=== PATIENT | female | born 1945 | race Caucasian/White ===

== ENCOUNTER 2019-02-19 17:31 | Inpatient (IN) | payer MEDICARE, BC ==
[~2019-02-19] VITALS: Ht 160 cm; Wt 121.6 kg
[2019-02-19] VITALS (13 sets, daily range): BP systolic 51–119; BP diastolic 37–77
[2019-02-19] MEDS ORDERED: POLY17PO4 PO (17:39)
[2019-02-19] MEDS ORDERED: ASPI81TA31 PO (17:39)
[2019-02-19] MEDS ORDERED: ATOR10TA PO (17:39)
[2019-02-19] MEDS ORDERED: HYDR-3326 PO (17:43)
[2019-02-19] MEDS ORDERED: BUME1TAB5 PO (17:43)
[2019-02-19] MEDS ORDERED: HUMALOG (17:43)
[2019-02-19] MEDS ORDERED: DOCU-141 PO (17:43)
[2019-02-19] MEDS ORDERED: ONDANSETRON 4 MG/2 ML VIAL IV ONE (17:45)
[2019-02-19] MEDS ORDERED: IV NORMAL SALINE 500 ML BAG IV ONE (17:45)
[2019-02-19] MEDS ORDERED: HYDROMORPHONE 1 MG/1 ML DISP.SYRIN IV ONE (17:45)
[2019-02-19] MEDS ORDERED: TRAM50TA PO (17:48)
[2019-02-19] MEDS ORDERED: FEBU40TA PO (17:48)
[2019-02-19] MEDS ORDERED: [UNRECOGNIZED DRUG - OTHER] PO (17:48)
[2019-02-19] MEDS ORDERED: METO50TA16 PO (17:49)
--- NOTE | 2019-02-19 17:52 | NUR ---
Home meds list was taken from [facility] notes. [facility] hospitalist still needs to review & reconcile these medicines list with patient and family.
--- NOTE | 2019-02-19 18:00 | NUR ---
received a 73 year old female pt, C/O sacral pain. patient is from [facility]. was undergoing dialysis when patient had severe pain and brought by ambulance acompanied with her daughter. pt upon arrival connected to ECG monitor, V/S checked. 12 lead ecg done. blood work done , iv inserted on LT AC G 20. pt has a FC acc to daughter was inserted on january 17. therefore FC was changed today. has a RT subclavian dialysis cath . 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
[2019-02-19] MEDS ORDERED: HYDROMORPHONE 2 MG/1 ML DISP.SYRIN ONE (18:04)
[2019-02-19] MEDS ORDERED: ONDANSETRON 4 MG/2 ML VIAL ONE (18:04)
[2019-02-19 18:12] LABS: BASOPHILS # (AUTO) 0.1 K/uL (0.0-8.0); BASOPHILS % (AUTO) 0.4 % (0.0-2.0); EOSINOPHILS % (AUTO) 0.2 % (0.0-7.0); HEMATOCRIT 39.4 % (31.2-41.9); HEMOGLOBIN 11.7 g/dL (10.9-14.3); LYMPHOCYTES # (AUTO) 2.1 K/uL (20.0-40.0); LYMPHOCYTES % (AUTO) 10.3 % (20.5-51.5); MEAN CORPUSCULAR HEMOGLOBIN 22.3 uug (24.7-32.8); MEAN CORPUSCULAR HGB CONC 30 g/dL (32.3-35.6); MONOCYTES # (AUTO) 1.1 K/uL (2.0-10.0); MONOCYTES % (AUTO) 5.6 % (0.0-11.0); NEUTROPHILS # (AUTO) 17.1 K/uL (1.8-8.9); NEUTROPHILS % (AUTO) 83.5 % (38.5-71.5); PLATELET COUNT (AUTO) 206 K/uL (179-408); RED BLOOD CELL COUNT(AUTO) 5.26 MIL/uL (3.63-4.92); WHITE BLOOD COUNT (AUTO) 20.5 K/uL (3.8-11.8)
[2019-02-19] MEDS ORDERED: MIDO5TAB PO (18:14)
[2019-02-19] MEDS ORDERED: FERR325T24 PO (18:14)
[2019-02-19] MEDS ORDERED: METO5TAB7 PO (18:14)
[2019-02-19] MEDS ORDERED: TOLV15TA PO (18:17)
[2019-02-19] MEDS ORDERED: SILD20TA2 PO (18:17)
[2019-02-19] MEDS ORDERED: LACT10SO7 PO (18:17)
[2019-02-19 18:34] LABS: CARBON DIOXIDE 27 mmol/L (21-32); CHLORIDE 96 mmol/L (98-107); CREATININE 3.5 mg/dL (0.6-1.3); GLUCOSE 150 mg/dL (74-106); POTASSIUM 3.9 mmol/L (3.5-5.1); UREA NITROGEN, BLOOD 71 mg/dL (7-18)
[2019-02-19 18:39] LABS: ALANINE AMINOTRANSFERASE 19 U/L (14-59); ALKALINE PHOSPHATASE 220 U/L (50-136); ASPARTATE AMINOTRANSFERASE 17 U/L (15-37); BILIRUBIN,DIRECT 0.3 mg/dL (0.0-0.2); BILIRUBIN,TOTAL 0.6 mg/dL (0.2-1.0); LIPASE 47 U/L (73-393); TOTAL PROTEIN, SERUM 5.4 g/dL (6.4-8.2)
[2019-02-19 18:41] LABS: BAND % (MANUAL) 5 % (0-10); LYMPHOCYTES % (MANUAL) 1 % (20-40); MONOCYTES % (MANUAL) 8 % (2-10); NEUTROPHILS % (MANUAL) 86 % (42-75)
[2019-02-19] MEDS ORDERED: VANCOMYCIN IV 1,000 MG in IV DEXTROSE 5% 250 ML IV ONE (18:45)
[2019-02-19] MEDS ORDERED: PIPERACILLIN SODIUM/TAZOBACTAM 3.375 G in IV DEXTROSE 5% 50 ML IV ONE (18:45)
[2019-02-19] MEDS ORDERED: PIPERACILLIN/TAZOBACTAM/D5W 50 ML IV ONE (18:50)
[2019-02-19] MEDS ORDERED: VANCOMYCIN IV 200 ML ONE (18:50)
--- NOTE | 2019-02-19 19:33 | NUR ---
Pt. admitted to [facility] (CCU Bed 1), under care of Dr. Miki Bello. Diagnosis: Renal Failure + Elevated Troponin. Belongs List completed. MRSA swab done.
--- NOTE | 2019-02-19 20:00 | NUR ---
Received patient from ER via gurney very lethargic, opens eyes to name, unable to follow any commands but localizes pain. As per report, patient was medicated with Dilaudid for pain. To CCU 1; DX: sepsis. Patient noted with severe cellulitis of BLEs. Monitor: Afib/flutter rate 70's. Dr. Bello notified of patient's admission and VS. IV Vancomycin infusing to [facility] IV site.
[2019-02-19] MEDS ORDERED: MORPHINE SULFATE 2 MG/1 ML DISP.SYRIN IV PRN (20:30)
[2019-02-19] MEDS ORDERED: IV D5/ 0.9% NACL 1,000 ML IV PRN (20:30)
[2019-02-19] MEDS ORDERED: NOREPINEPHRINE BITARTRATE 8 MG in IV DEXTROSE 5% 500 ML IV PRN (20:30)
[2019-02-19] MEDS ORDERED: ONDANSETRON 4 MG/2 ML VIAL IV PRN (20:30)
[2019-02-19] MEDS ORDERED: ALBUTEROL SULFATE 2.5 MG/3 ML NEBU NEB PRN (20:30)
[2019-02-19] MEDS ORDERED: ACETAMINOPHEN 650 MG SUPP.RECT RC PRN (20:30)
--- NOTE | 2019-02-19 20:30 | NUR ---
Admission data obtained from patient's daughter Kathleen; visiting hours discussed with her. Verbalized understanding.
[2019-02-19] MEDS ORDERED: VANCOMYCIN IV 1 G in PREMIXED 0 EACH IV SCH (21:00)
--- NOTE | 2019-02-19 21:05 | NUR ---
Patient's son Zachary here. Plan of care discussed with both daughter and son. Dr. Aguirre notified of patient's CPAP/BIPAP need at night. Ordered ABGs in am; no ABGs for now as per MD. Patient remains very lethargic. RT informed of BIPAP orders.
--- NOTE | 2019-02-19 21:15 | NUR ---
Placed pt on BIPAP at this time with setting 15/5,RR14,40%. SpO2 95% protective gel on mask on and josé miguel BIPAP well. plugged in to red outlet. will cont to monitor pt.
--- NOTE | 2019-02-19 21:30 | NUR ---
Unable to obtain accurate BPs. Patient continues to open eyes to name but still very lethargic. Attempted to insert another IV but futile. Skin warm and dry. Monitor: still afib rate 70's. Metal Technician notified of PICC line need.
[2019-02-19] MEDS: FAMOTIDINE. 20 MG/2 ML VIAL IV SCH (21:31)
--- NOTE | 2019-02-19 21:40 | NUR ---
Patient's daughter Kathleen called and informed of the need for PICC line. Consent obtained via phone. First Leveler Jessica notified.
[2019-02-19] MEDS ORDERED: PIPERACILLIN/TAZOBACTAM/D5W 50 ML ONE (21:46)
[2019-02-19] MEDS ORDERED: PIPERACILLIN/TAZOBACTAM/D5W 2.25 G in PREMIXED 1 EACH IV SCH (22:00)
[2019-02-19] MEDS ORDERED: IV NORMAL SALINE 500 ML IV ONE (22:00)
--- NOTE | 2019-02-19 22:00 | NUR ---
Dr. Bello here. Aware of patient's condition. NS IV bolus infusing.
[2019-02-19] MEDS ORDERED: NOREPINEPHRINE BITARTRATE 4 MG/4 ML VIAL IV ONE (22:15)
[2019-02-19] MEDS: NOREPINEPHRINE BITARTRATE 8 MG in IV DEXTROSE 5% 500 ML IV PRN (22:39)
--- NOTE | 2019-02-19 22:45 | NUR ---
Triple lumen cath successfully inserted to R femoral by Dr. Mccann. Levophed drip titrated up for BP support. ABGs drawn by RT Dr. Bello informed.
[2019-02-19 23:02] LABS: ABG BASE EXCESS -1.8 mmol/L; ABG HCO3 28.1 mmol/L; ABG PCO2 75.7 mmHg (35.0-45.0); ABG PH 7.187 (7.350-7.450); ABG PO2 92.3 mmHg (75.0-100.0); ABG SITE LEFT RADIAL; ABG TOTAL HEMOGLOBIN 12.4 G/dL (12.0-16.0); COHb 2.8 % (0.5-1.5); MetHb 0.2 % (0.0-1.5); O2Hb 92.2 % (94.0-97.0); VENT MODE BIPAP
--- NOTE | 2019-02-19 23:10 | NUR ---
Call placed to patient's daughter; no answer. Patient's son Zachary called and informed of pending intubation.
--- NOTE | 2019-02-19 23:15 | NUR ---
Results of ABGs called to Dr. Mccann; ordered to prepare patient for intubation. RTs here. Patient's daughter Kathleen called back and informed of pending intubation; able to talk to Dr. Mccann.
--- NOTE | 2019-02-19 23:40 | NUR ---
Orally intubated by Dr. Mccann; premedicated with Etomidate and Norcuron IV. VS monitored closely. See IV spread sheet for Levophed drip rates/dosages.
[2019-02-19] MEDS: PROPOFOL 100 ML IV PRN (23:43)
[2019-02-19] MEDS ORDERED: ETOMIDATE 20 MG/10 ML VIAL IV ONE (23:45)
[2019-02-19] MEDS ORDERED: VECURONIUM BROMIDE 10 MG VIAL IV ONE (23:45)
--- NOTE | 2019-02-19 23:45 | NUR ---
intubate pt at this time, done by Dr. Mccann. placed on vent with setting of AC 16, VT650,50% FiO2. josé miguel vent setting well. SpO2 99%. secured with anchorfast device. ETT with 7.5 aprox 24cm at the lip. alarm on and audible, ambubag at pt bedside. vent plugged into red outlet.
[2019-02-20] VITALS (94 sets, daily range): BP systolic 60–149; BP diastolic 36–101
[2019-02-20] MEDS ORDERED: VECURONIUM BROMIDE 10 MG VIAL IV ONE ×2 (00:15→15:13)
[2019-02-20] MEDS ORDERED: NS IV PRN (00:30)
--- NOTE | 2019-02-20 00:30 | NUR ---
Daughter Kathleen at bedside; made aware of patient's condition. Heparin drip dose discussed with Pharmacist Brandon. Informed that Dr. Bello okayed dose of 1140 units/H and with no bolus.
[2019-02-20] MEDS ORDERED: IV NS 1000 ML 1,000 ML IV PRN (00:45)
[2019-02-20] MEDS: HEPARIN/D5W DRIP 500 ML IV PRN ×2 (00:55→23:48)
--- NOTE | 2019-02-20 00:55 | NUR ---
Heparin drip started at 1140 units/H after all procedures done. (Dr. Bello informed earlier re: delay in starting the drip). Also informed about absence of pedal pulses.
[2019-02-20] MEDS ORDERED: IV NORMAL SALINE 500 ML IV ONE (01:00)
[2019-02-20 01:51] LABS: ABG BASE EXCESS -0.4 mmol/L; ABG HCO3 22.9 mmol/L; ABG PCO2 33.6 mmHg (35.0-45.0); ABG PH 7.452 (7.350-7.450); ABG PO2 67.8 mmHg (75.0-100.0); ABG SITE LEFT BRACHIAL; COHb 2.4 % (0.5-1.5); MetHb 0.3 % (0.0-1.5); O2Hb 91.9 % (94.0-97.0); VENT MODE VENT - A/C; VT, ABG 650 mL
--- NOTE | 2019-02-20 01:55 | NUR ---
after ABG was done, increased fio2 to 80% to increased PO2. will cont to monitor pt. pt appears stable at this time. will cont to monitor.
--- NOTE | 2019-02-20 01:55 | NUR ---
ABGs drawn by RTs with difficulty. Results called to Dr. Mccann. FIO2 increased to 80%.
--- NOTE | 2019-02-20 02:00 | NUR ---
Diprivan and Levophed drips titrated for adequate sedation and BP support. See IV spread sheet.
[2019-02-20] MEDS: PROPOFOL 100 ML IV PRN ×4 (04:51→19:11)
[2019-02-20 05:52] LABS: BASOPHILS # (AUTO) 0.1 K/uL (0.0-8.0); BASOPHILS % (AUTO) 0.7 % (0.0-2.0); EOSINOPHILS # (AUTO) 0.1 K/uL (0.0-0.7); EOSINOPHILS % (AUTO) 0.4 % (0.0-7.0); HEMATOCRIT 37.8 % (31.2-41.9); HEMOGLOBIN 11.6 g/dL (10.9-14.3); LYMPHOCYTES # (AUTO) 1.7 K/uL (20.0-40.0); MEAN CORPUSCULAR HEMOGLOBIN 22.6 uug (24.7-32.8); MEAN CORPUSCULAR HGB CONC 31 g/dL (32.3-35.6); MEAN CORPUSCULAR VOLUME 73.4 fL (75.5-95.3); MONOCYTES # (AUTO) 1.1 K/uL (2.0-10.0); NEUTROPHILS # (AUTO) 11.4 K/uL (1.8-8.9); NEUTROPHILS % (AUTO) 78.9 % (38.5-71.5); PLATELET COUNT (AUTO) 212 K/uL (179-408); RED BLOOD CELL COUNT(AUTO) 5.14 MIL/uL (3.63-4.92); WHITE BLOOD COUNT (AUTO) 14.4 K/uL (3.8-11.8)
[2019-02-20 05:56] LABS: ABG BASE EXCESS 1.1 mmol/L; ABG HCO3 23.4 mmol/L; ABG PCO2 30.1 mmHg (35.0-45.0); ABG PH 7.509 (7.350-7.450); ABG PO2 127.3 mmHg (75.0-100.0); ABG SITE LEFT BRACHIAL; ABG TOTAL HEMOGLOBIN 12.3 G/dL (12.0-16.0); COHb 1.9 % (0.5-1.5); MetHb 0.1 % (0.0-1.5); O2Hb 96.7 % (94.0-97.0); VENT MODE VENT - A/C; VT, ABG 650 mL
[2019-02-20] MEDS ORDERED: PIPERACILLIN/TAZOBACTAM/D5W 2.25 G in PREMIXED 1 EACH IV SCH (06:00)
[2019-02-20 06:09] LABS: THYROID STIMULATING HORMONE 4.509 mIU/mL (0.358-3.740)
[2019-02-20 06:10] LABS: ALANINE AMINOTRANSFERASE 17 U/L (14-59); ALKALINE PHOSPHATASE 185 U/L (50-136); ASPARTATE AMINOTRANSFERASE 15 U/L (15-37); BILIRUBIN,TOTAL 0.7 mg/dL (0.2-1.0); CARBON DIOXIDE 26 mmol/L (21-32); CHLORIDE 98 mmol/L (98-107); CHOLESTEROL 50 mg/dL (<200); CREATININE 3.7 mg/dL (0.6-1.3); GLUCOSE 214 mg/dL (74-106); HDL CHOLESTEROL < 10 mg/dL (40-60); MAGNESIUM 1.9 mg/dL (1.8-2.4); PHOSPHOROUS 3.6 mg/dL (2.5-4.9); TOTAL PROTEIN, SERUM 4.6 g/dL (6.4-8.2); TRIGLYCERIDES 195 MG/DL (30-150); UREA NITROGEN, BLOOD 74 mg/dL (7-18)
[2019-02-20 06:13] LABS: IRON, SERUM 19 ug/dL (50-175)
[2019-02-20 06:25] LABS: LYMPHOCYTES % (MANUAL) 18 % (20-40); MONOCYTES % (MANUAL) 9 % (2-10); NEUTROPHILS % (MANUAL) 73 % (42-75)
--- NOTE | 2019-02-20 06:30 | NUR ---
BPs remain labile. Levophed drip titrated. This am PTT=60 seconds. Heparin drip remains at 1140 units/H as per protocol. Next PTT tomorrow am.
[2019-02-20] MEDS ORDERED: Z GUARD REMEDY PASTE 57 GM TUBE TOP PRN (06:45)
--- NOTE | 2019-02-20 07:30 | NUR ---
RECIEVED PT LYING FLAT IN BED, SEDATED ON DIPRIVAN DRIP AT 30MCG/KG/MIN, BUT RESPONSIVE TO DEEP PAINFUL STIMULI. PT'S BP IS VERY LABILE. ON LEVOPHED DRIP AT 20MCG/MIN AND INCREASED UP TO 22MCG/MIN TO KEEP SBP ABOVE 90. PT IS ALSO ON HEPARIN DRIP RUNNING AT 1140UNITS/HR, DR NGOC ORDERED TO HOLD IT FOR ONE HOUR FROM 0730 TO 0830AM.
--- NOTE | 2019-02-20 07:30 | NUR ---
Spoke to Dr. Bello re: patient's labs. Order received to hold Heparin drip x 1 H. Endorsed to Leatha PERKINS.
[2019-02-20 08:00] LABS: *BILIRUBIN,URIN 1+ (NEGATIVE); *BLOOD, URINE 1+ (NEGATIVE); *CLARITY,URINE CLOUDY (CLEAR); *COLOR,URINE YELLOW (YELLOW); *KETONES,URINE TRACE (NEGATIVE); *UROBILINOGEN,URINE 0.2 E.U./dl (NORMAL); LEUKOCYTE ESTERASE ,URINE 1+ (NEGATIVE); NITRITE, URINE NEGATIVE (NEGATIVE); UGLUCOSE NEGATIVE (NEGATIVE)
--- NOTE | 2019-02-20 08:00 | NUR ---
INTUBATED, ON A VENT WITH A SETTING OF AC-16, FIO2-80%, VT-650. SATTING 100%. LUNGS HAS SCATTERED BILATERAL CRACKLES THROUGHOUT. SUCTION VERY LITTLE PINKISH SECRETIONS. MD IS AWARE.
--- NOTE | 2019-02-20 08:25 | NUR ---
Pt received sedated, on continuous mechanical ventilation orally intubated with 7.5 ETT secured at 24cm lip line. Pt received on Ray vent with ordered settings of A/C-16, VT-650, FIO2-80% Pt tolerating vent settings well. SpO2-100% ETT secured with AnchorFast device. Good skin integrity noted to area of application. Periodically moved ETT to alternating sides of mouth, per hospital policy. Oral care done. Sxn'd and lavaged as needed. Sxn'd for small amounts bloody secretions. No signs or symptoms of respiratory distress noted. No respiratory treatments administered. Vent alarm parameters checked, on and audible. Vent plugged into red emergency outlet. Bag/valve/mask at bedside. HME changed. PPE used.
--- NOTE | 2019-02-20 08:30 | NUR ---
SEEN AND EXAMINED BY DR MOSER WITH NEW ORDERS. MAIN IVF NS FLUID IS DISCONTINUED.
--- NOTE | 2019-02-20 08:30 | NUR ---
HEPARIN DRIP RESTARTED AT SAME RATE OF 1140UNITS/HR. PTT ORDERED FOR 1430.
[2019-02-20] MEDS: NOREPINEPHRINE BITARTRATE 8 MG in IV DEXTROSE 5% 500 ML IV PRN (08:43)
[2019-02-20] MEDS: Z GUARD REMEDY PASTE 57 GM TUBE TOP SCH ×2 (08:48→20:52)
[2019-02-20] MEDS: FAMOTIDINE. 20 MG/2 ML VIAL IV SCH ×2 (08:48→20:51)
[2019-02-20] MEDS ORDERED: VANCOMYCIN IV 1,500 MG in IV DEXTROSE 5% 500 ML IV ONE (09:00)
[2019-02-20 09:20] LABS: RBC,URINE 0-3 /HPF (0-3)
[2019-02-20 09:21] LABS: BACTERIA,URINE FEW /HPF (NONE SEEN); SQUAMOUS EPITHELIAL CELL,UR FEW /HPF (NONE SEEN); YEAST,URINE BUDDING YEAST /HPF (NONE SEEN)
--- NOTE | 2019-02-20 09:30 | NUR ---
SEEN AND EXAMINED BY DR MORENO WITH NEW ORDERS.
--- NOTE | 2019-02-20 09:30 | NUR ---
PT HAS SUSTAINED 12SECONDS SUSTAINED VTACH RATE OF 110B/MIN. PT IS RESPONSIVE TO DEEP OAIN . BP IS HOLDING GOOD. NOTIFIED DR GROSSMAN AND ORDERED EKG, DONE.
[2019-02-20] MEDS ORDERED: DEXTROSE 50% 50 ML DISP.SYRIN IV PRN (10:00)
--- NOTE | 2019-02-20 10:00 | NUR ---
BUMPED UP THE LEVOPHED UP TO 26MCG/MIN. HR
--- NOTE | 2019-02-20 12:25 | NUR ---
FIO2 decreased to 70% RN Leatha Garcia notified. Pt tolerating well. SpO2-100%
[2019-02-20] MEDS: BLOOD SUGAR DIAGNOSTIC 1 EACH STRIP VI SCH ×3 (12:55→18:39)
[2019-02-20] MEDS: INSULIN REGULAR, HUMAN 300 UNIT/3 ML VIAL SQ PRN ×2 (12:58→18:50)
[2019-02-20] MEDS: FLUDROCORTISONE ACETATE 0.1 MG TABLET NG SCH ×3 (13:00→23:59)
[2019-02-20] MEDS: PIPERACILLIN/TAZOBACTAM/D5W 3.375 G in PREMIXED 1 EACH IV SCH ×2 (13:50→23:59)
[2019-02-20] MEDS: NOREPINEPHRINE BITARTRATE 16 MG in IV DEXTROSE 5% 500 ML IV PRN ×2 (13:58→23:45)
[2019-02-20] MEDS ORDERED: SOD FERRIC GLUC COMPLX/SUCROSE 125 MG in IV NORMAL SALINE 100 ML IV SCH (14:00)
[2019-02-20] MEDS: HYDROCORTISONE SOD SUCCINATE 100 MG/2 ML VIAL IV SCH ×2 (14:09→20:51)
[2019-02-20] MEDS ORDERED: ROCURONIUM BROMIDE 50 MG/5 ML VIAL IV ONE (15:13)
--- NOTE | 2019-02-20 15:31 | NUR ---
Clinical Pharmacy Note: Vancomycin Pharmacy to Dose Subjective: To start vanco in this 73 y/o female for indication of "documented infection" Objective: weight 112 kg height 160cm BMI 43.9 BUN 74 Scr 3.7 wbc 14.4 temp 98.1 1gm x 1 vanco in ER 02/19 @1848 random with am labs today: 8.9 Assessment/Plan Due to ARF, will dose per level for now. Per today's random, dosed 1500mg vanco x 1 at 0900. Next random due tomorrow with am labs. Will check level when available and re-dose as needed. Will follow
--- NOTE | 2019-02-20 17:00 | NUR ---
HEMODIALYSIS STARTED ORDERED. CONDITION IS UNCHANGED.
[2019-02-20] MEDS ORDERED: NEPRO 1000 ML NG PRN (17:30)
--- NOTE | 2019-02-20 17:30 | NUR ---
DR GROSSMAN ORDERED AN NGT AND TO START TUBE FEEDING. UNABLE TO DO IT NOW, HD IN PROGRESS. WILL ENDORSE IT TO SACK SORTER. DR GROSSMAN IS AWARE.
--- NOTE | 2019-02-20 17:40 | NUR ---
FIO2 decreased to 60% RN Leatha Garcia notified. Pt tolerating well. SpO2-100%
--- NOTE | 2019-02-20 19:13 | NUR ---
PT RECEIVED ON FORTE VENT WITH ETT SECURED AND AIRWAY PATENT. 7.5 ETT PROPERLY SECURED AT 24CM BY LIP. VENT SETTINGS AC MODE, RATE 16, VT 650, 60% FIO2. VENT ALARMS SET AND AUDIBLE.
--- NOTE | 2019-02-20 20:00 | NUR ---
RECEIVED PT ON DIALYSIS IN PROGRESS. ORALLY INTUBATED TO VENT W/ SETTINGS OF AC-16, TV-650, FIO2 -60%, W/ 02 SAT OF 100%.ON LEVOPHED DRIP @ 28MCQ/MIN VIA TLC ON R FEM. ON DIPRIVAN DRIP @ 28 MCQ/ KG/ MIN. HEPARIN DRIP @ 1140 UNITS ON RAC, NO SIGNS OF INFILTRATION. C-SCOPE AFIB, CONTROLLED.
[2019-02-20] MEDS: MICAFUNGIN SODIUM 100 MG in IV NORMAL SALINE 100 ML IV SCH (20:12)
[2019-02-20] MEDS ORDERED: IV NORMAL SALINE 250 ML BAG IV SCH (20:15)
--- NOTE | 2019-02-20 20:52 | NUR ---
FIO2 TITRATED DOWN TO 50%. SPO2 STEADY AT 100%
--- NOTE | 2019-02-20 21:00 | NUR ---
HEMODIALYSIS DONE, REMOVED 1000CC.
--- NOTE | 2019-02-20 22:53 | NUR ---
NGT # 14 INSERTED ON R NARE, X-RAY DONE TO CHECK PLACEMENT
--- NOTE | 2019-02-20 23:00 | NUR ---
HS CARE DONE. REPOSITIONED ON HER SIDE W/ HOB SLIGHTLY ELEVATED.
[2019-02-21] VITALS (88 sets, daily range): BP systolic 82–154; BP diastolic 47–96
--- NOTE | 2019-02-21 | NUR ---
STARTED TUBE FDG W/ NEPRO @ 30CC/HR., KEPT HOB ELEVATED 30 DEGREES. DECREASED LEVOPHED DRIP TO 26MCQ/MIN.
[2019-02-21] MEDS: BLOOD SUGAR DIAGNOSTIC 1 EACH STRIP VI SCH ×5 (00:06→23:48)
[2019-02-21] MEDS: INSULIN REGULAR, HUMAN 300 UNIT/3 ML VIAL SQ PRN ×5 (00:08→23:49)
[2019-02-21] MEDS: PROPOFOL 100 ML IV PRN ×5 (00:12→22:02)
--- NOTE | 2019-02-21 02:30 | NUR ---
AM CARE DONE. ORAL CARE DONE. WOUND CARE DONE. REPOSITIONED PT.
[2019-02-21 05:15] LABS: ALANINE AMINOTRANSFERASE 22 U/L (14-59); ALKALINE PHOSPHATASE 203 U/L (50-136); ASPARTATE AMINOTRANSFERASE 23 U/L (15-37); BILIRUBIN,TOTAL 0.9 mg/dL (0.2-1.0); CARBON DIOXIDE 23 mmol/L (21-32); CHLORIDE 96 mmol/L (98-107); CREATININE 3.5 mg/dL (0.6-1.3); GLUCOSE 271 mg/dL (74-106); PHOSPHOROUS 4.1 mg/dL (2.5-4.9); POTASSIUM 4.2 mmol/L (3.5-5.1); TOTAL PROTEIN, SERUM 5.3 g/dL (6.4-8.2); UREA NITROGEN, BLOOD 63 mg/dL (7-18)
[2019-02-21 05:24] LABS: BASOPHILS % (AUTO) 0.2 % (0.0-2.0); HEMATOCRIT 40.9 % (31.2-41.9); HEMOGLOBIN 12.5 g/dL (10.9-14.3); LYMPHOCYTES # (AUTO) 1.8 K/uL (20.0-40.0); LYMPHOCYTES % (AUTO) 10.4 % (20.5-51.5); MEAN CORPUSCULAR HEMOGLOBIN 22.2 uug (24.7-32.8); MEAN CORPUSCULAR HGB CONC 31 g/dL (32.3-35.6); MEAN CORPUSCULAR VOLUME 72.7 fL (75.5-95.3); MONOCYTES # (AUTO) 0.7 K/uL (2.0-10.0); MONOCYTES % (AUTO) 3.7 % (0.0-11.0); NEUTROPHILS # (AUTO) 15.2 K/uL (1.8-8.9); NEUTROPHILS % (AUTO) 85.7 % (38.5-71.5); PLATELET COUNT (AUTO) 253 K/uL (179-408); RED BLOOD CELL COUNT(AUTO) 5.62 MIL/uL (3.63-4.92); WHITE BLOOD COUNT (AUTO) 17.7 K/uL (3.8-11.8)
--- NOTE | 2019-02-21 05:30 | NUR ---
PTT-80.9 SECS, HOLD HEPARIN DRIP FOR 30 MINS.
[2019-02-21] MEDS: FLUDROCORTISONE ACETATE 0.1 MG TABLET NG SCH ×4 (05:47→23:50)
--- NOTE | 2019-02-21 06:00 | NUR ---
RESUMED HEPARIN DRIP @ 940 UNITS/HR. PTT @ 1200.
--- NOTE | 2019-02-21 07:50 | NUR ---
PT RECEIVED ORALLY INTUBATED WITH A SIZE 7.5 ETT SECURED WITH ANCHOR-FAST APPROX 24CM AT THE LIP. PT IS ON A FORTE VENT ON SETTINGS OF A/C 16, VT 650, 0 PEEP, AND 50% FIO2. VENT PARAMETERS AND ALARMS CHECKED, ALARMS ARE AUDIBLE. PT IS TOLERATING VENT SETTINGS WELL, NO RESP. DISTRESS NOTED AT THIS TIME. SUCTIONED A MODERATE AMOUNT OF WHITE, YELLOW AND BLOOD TINGED SECRETIONS. RN IS AWARE. AMBU-BAG AT BEDSIDE. VENT PLUGGED INTO RED OUTLET. SUCTION PRN. WILL CONTINUE TO MONITOR.
[2019-02-21] MEDS: HYDROCORTISONE SOD SUCCINATE 100 MG/2 ML VIAL IV SCH ×2 (08:27→20:36)
[2019-02-21] MEDS: Z GUARD REMEDY PASTE 57 GM TUBE TOP SCH ×2 (08:28→20:38)
[2019-02-21 08:40] LABS: ABG BASE EXCESS 1.2 mmol/L; ABG HCO3 22.8 mmol/L; ABG PCO2 27.7 mmHg (35.0-45.0); ABG PH 7.533 (7.350-7.450); ABG PO2 92.3 mmHg (75.0-100.0); ABG SITE RIGHT RADIAL; ABG TOTAL HEMOGLOBIN 13.1 G/dL (12.0-16.0); COHb 1.7 % (0.5-1.5); MetHb 0.3 % (0.0-1.5); O2Hb 95.4 % (94.0-97.0); VENT MODE VENT - A/C; VT, ABG 650 mL
--- NOTE | 2019-02-21 09:00 | NUR ---
0955 Vent changes as follow: A/C 14, tv600, Peep 5, 50% FIO2. Dr. Daniel diehl in the unit to examine pt. full report given.
--- NOTE | 2019-02-21 09:55 | NUR ---
VENT CHANGES MADE PER MD ORDER. PT IS NOW ON A/C 14, VT 600, +5 PEEP AND 50% FIO2. RN IS AWARE. PT IS TOLERATING CURRENT VENT SETTINGS WELL, NO RESP. DISTRESS NOTED AT THIS TIME. FAMILY IS AT BEDSIDE. WILL CONTINUE TO MONITOR.
[2019-02-21] MEDS: NOREPINEPHRINE BITARTRATE 16 MG in IV DEXTROSE 5% 500 ML IV PRN ×2 (10:20→22:07)
[2019-02-21] MEDS: PIPERACILLIN/TAZOBACTAM/D5W 2.25 G in PREMIXED 1 EACH IV SCH ×2 (10:56→18:23)
--- NOTE | 2019-02-21 10:56 | NUR ---
nephrology serviced, in the unit to examine pt. while in there updated pt's daughter on care plan.
[2019-02-21 11:06] LABS: HEPATITIS B SURFACE AB Non Reactive (.); HEPATITIS B SURFACE AG Negative (Negative)
--- NOTE | 2019-02-21 11:40 | NUR ---
Cardiology services, Dr. Glover in the unit to examine pt. Order for EKG, Troponin and INR. stat received and carried. ekg and troponin resulted while public health engineer still in the unit. Orders to stop heparin if INR greater than 2, or continue with drip if INR less than 2.
[2019-02-21] MEDS ORDERED: AMIODARONE HCL IV 150 MG in IV DEXTROSE 5% 100 ML IV ONE (12:00)
--- NOTE | 2019-02-21 12:06 | NUR ---
Clinical Pharmacy Note: Vancomycin Pharmacy to Dose Subjective: To continue vanco in this 73 y/o dialysis female for Severe sepsis with shock, HCAP ?aspiration Acute resp failure UTI per ua, BLE acute on chronic cellulitis (per ID note) Objective: weight 112 kg height 160cm BMI 43.9 BUN 63 Scr 3.5 (on HD) wbc 17.7 temp 98.8 Vanco random level: 8.9 (on 02/20 with am labs) Vanco pre-HD level: 18 (on 02/21 with am labs) Assessment/Plan As per bus attendant, Patient will be dialyzed today. As per vanco dosing protocol for dialysis patients since vanco pre-HD level today is 18 mcg/ml, will give vanco 500mg IVPB x1 today post-HD. Will continue to dose as per pre-HD level (next level not yet ordered). Will follow up.
[2019-02-21] MEDS: AMIODARONE HCL IV 900 MG in IV DEXTROSE 5% 482 ML IV PRN (12:30)
[2019-02-21] MEDS ORDERED: ASPIRIN 325 MG TABLET NG ONE (12:45)
[2019-02-21] MEDS ORDERED: ASPIRIN 325 MG TABLET PO ONE (12:45)
[2019-02-21] MEDS: ALBUMIN HUMAN 25% 25 GM in PREMIXED 1 EACH IV SCH ×3 (13:01→23:51)
--- NOTE | 2019-02-21 13:15 | NUR ---
HD rn. in the unit to dialyse patient. levophed titrated as needed see IV spread sheet.
--- NOTE | 2019-02-21 13:56 | NUR ---
WOUND CARE CONSULT: PT PRESENTS WITH STAGE 3 ULCER (MULTIPLE OPEN AREAS) TO SACRUM WHICH EXTENDS TO BUTTOCKS, LEFT HEEL ULCER AND RT HEEL SCAR, PRESENT ON ADMISSION. PT ALSO NOTED TO HAVE WEEPING EDEMA OF ARMS AND LEGS. RECOMMEND DPM AND SURGICAL CONSULTS. DR BEY AND DR BOUDREAUX NOTIFIED OF CONSULT REQUESTS. PT ON FIRST STEP CIRS LOW AIRLOSS MATTRESS. ALL SKIN PROTECTION RECOMMENDATIONS DISCUSSED WITH NURSING STAFF. WILL SEE PRN. GAMA IN AGREEMENT WITH PLAN OF CARE. Addendum: 02/21/19 at 1400 by YANI BHARDWAJ RN Amended: Links added.
[2019-02-21] MEDS ORDERED: NEPRO 1000 ML NG PRN (16:59)
[2019-02-21 17:00] LABS: ABG BASE EXCESS -0.6 mmol/L; ABG HCO3 21.6 mmol/L; ABG PCO2 28.4 mmHg (35.0-45.0); ABG PH 7.499 (7.350-7.450); ABG PO2 82.8 mmHg (75.0-100.0); ABG SITE RIGHT RADIAL; ABG TOTAL HEMOGLOBIN 12.5 G/dL (12.0-16.0); COHb 2.5 % (0.5-1.5); MetHb 0.3 % (0.0-1.5); O2Hb 94.1 % (94.0-97.0); VENT MODE VENT - A/C; VT, ABG 600 mL
[2019-02-21] MEDS ORDERED: VANCOMYCIN IV 500 MG in IV DEXTROSE 5% 100 ML IV ONE (17:00)
[2019-02-21] MEDS: PROTEIN SUPPLEMENT (PROSTAT) 30 ML LIQUID NG SCH (17:04)
--- NOTE | 2019-02-21 19:00 | NUR ---
Dr. Bello speaking to daughter, Kathleen, outside of unit regarding plan of care for the patient. Transfer to [facility] is no longer a plan per family request.
--- NOTE | 2019-02-21 19:15 | NUR ---
received patient with Nepro running at 35 ml/hr and 0.9% NS TKO.
--- NOTE | 2019-02-21 19:15 | NUR ---
received patient in bed, intubated and tolerating vent settings. Patient on multiple drips: amiodarone, propofol, heparin, and Levophed. Right femoral central line is intact and patent with no signs of infection or drainage.. Patient has NG tube with 50ml residual and running with Nephro at 35ml/hr and is being tolerated. patient has Rios intact with minimal output. HD was done today with 1 liter output via Right subclavian permacath. patient has bilateral cellulitis with serosanguineous drainage. Patient has been turned and care has been given. Dressing for the Right AC IV has been changed. Vital signs are being monitored Q15 min.
--- NOTE | 2019-02-21 19:16 | NUR ---
Pt received orally intubated with a 7.5 ETT secured with AnchorFast at approximately 24cm at the lip. Pt is on Ray vent with settings of AC 14, VT 600, Peep +5, FiO2 50%. Pt is tolerating vent settings well, no signs of respiratory distress noted at this time. Ambu-bag at bedside, vent plugged in red outlet. Vent alarms functioning and audible. Will continue to monitor pt throughout shift.
[2019-02-21] MEDS: FAMOTIDINE 20 MG TABLET GT SCH (20:36)
[2019-02-21] MEDS: MICAFUNGIN SODIUM 100 MG in IV NORMAL SALINE 100 ML IV SCH (20:36)
[2019-02-21] MEDS: ATORVASTATIN 40 MG TABLET NG SCH (20:36)
[2019-02-21] MEDS ORDERED: FAMOTIDINE. 20 MG/2 ML VIAL IV SCH (21:00)
[2019-02-22] VITALS (95 sets, daily range): BP systolic 81–131; BP diastolic 41–98
[2019-02-22] MEDS: HEPARIN/D5W DRIP 500 ML IV PRN (01:47)
[2019-02-22] MEDS: PIPERACILLIN/TAZOBACTAM/D5W 2.25 G in PREMIXED 1 EACH IV SCH ×3 (03:05→20:16)
[2019-02-22] MEDS: IV NORMAL SALINE 250 ML IV PRN (03:20)
[2019-02-22] MEDS: PROPOFOL 100 ML IV PRN ×3 (03:34→16:11)
--- NOTE | 2019-02-22 04:40 | NUR ---
initiated sedation vacation. Within 4 minutes, patient able to move upper extremities and turning neck from side to side. Patient not able to follow simple commands. patient then restarted on propofol drip.
[2019-02-22 05:00] LABS: BASOPHILS % (AUTO) 0.2 % (0.0-2.0); HEMATOCRIT 38.1 % (31.2-41.9); HEMOGLOBIN 11.4 g/dL (10.9-14.3); LYMPHOCYTES # (AUTO) 1.7 K/uL (20.0-40.0); LYMPHOCYTES % (AUTO) 9.3 % (20.5-51.5); MEAN CORPUSCULAR HEMOGLOBIN 22.3 uug (24.7-32.8); MEAN CORPUSCULAR HGB CONC 30 g/dL (32.3-35.6); MEAN CORPUSCULAR VOLUME 74.6 fL (75.5-95.3); MONOCYTES # (AUTO) 1.3 K/uL (2.0-10.0); MONOCYTES % (AUTO) 6.9 % (0.0-11.0); NEUTROPHILS # (AUTO) 15.6 K/uL (1.8-8.9); NEUTROPHILS % (AUTO) 83.6 % (38.5-71.5); PLATELET COUNT (AUTO) 248 K/uL (179-408); RED BLOOD CELL COUNT(AUTO) 5.11 MIL/uL (3.63-4.92); WHITE BLOOD COUNT (AUTO) 18.7 K/uL (3.8-11.8)
[2019-02-22] MEDS: ALBUMIN HUMAN 25% 25 GM in PREMIXED 1 EACH IV SCH (05:01)
[2019-02-22 05:13] LABS: ALANINE AMINOTRANSFERASE 14 U/L (14-59); ALKALINE PHOSPHATASE 150 U/L (50-136); ASPARTATE AMINOTRANSFERASE 14 U/L (15-37); CARBON DIOXIDE 23 mmol/L (21-32); CHLORIDE 95 mmol/L (98-107); CREATININE 3.3 mg/dL (0.6-1.3); POTASSIUM 4.3 mmol/L (3.5-5.1); TOTAL PROTEIN, SERUM 5.2 g/dL (6.4-8.2); UREA NITROGEN, BLOOD 56 mg/dL (7-18)
[2019-02-22 05:34] LABS: GLUCOSE 326 mg/dL (74-106)
[2019-02-22] MEDS: FLUDROCORTISONE ACETATE 0.1 MG TABLET NG SCH ×4 (05:47→23:21)
[2019-02-22] MEDS: BLOOD SUGAR DIAGNOSTIC 1 EACH STRIP VI SCH ×4 (05:51→23:21)
[2019-02-22] MEDS: INSULIN REGULAR, HUMAN 300 UNIT/3 ML VIAL SQ PRN ×4 (05:53→23:22)
--- NOTE | 2019-02-22 06:30 | NUR ---
End of shift report. Patient continues to be on vasopressor to maintain BP within parameters per MD. Propofol is still continued for sedation, with patient occasionally able to move bilateral upper extremities, weak and slow. Heparin drip is also continues with latest APTT value of 49.0. Amiodarone drip still continued per patient cardiac arrhythmia. Patient Right femoral central line is still intact and patent. patient Rios catheter also patent with minimal output of 10ml through out the shift. Patient continues to tolerate vent settings. Will continue to monitor and endorse plan of care to oncoming day shift nurse.
--- NOTE | 2019-02-22 07:15 | NUR ---
called the medical center service to inform patient now on bipap with fio2 of 70% ,needs to change patient status back to icu ,awaiting call back.endorsed to day RN .
--- NOTE | 2019-02-22 07:40 | NUR ---
RECEIVED PT ON AC 14, VT 600, +5, 50% FIO2. PT JUDD SETTINGS WELL. ETT 7.5, SECURED WITH ANCHOR-FAST AT APPROX. 24CM. NO INDICATIONS FOR BREATHING TX AT THIS TIME. PT SX FOR MODERATE AMOUNTS OF THIN YELLOW SECRETIONS. ORAL CARE DONE. AMBUBAG AT BEDSIDE. VENT ALARMS ON AND AUDIBLE. PLUGGED INTO RED OUTLET.
--- NOTE | 2019-02-22 08:00 | NUR ---
Patient sedation vacation, and taking about 15- 20 minutes to have slight arousale. On levophed drip, heparin drip to sustain sbp > 90. Anton Pozo RN
[2019-02-22] MEDS: PROTEIN SUPPLEMENT (PROSTAT) 30 ML LIQUID NG SCH ×3 (08:59→18:26)
[2019-02-22] MEDS: NOREPINEPHRINE BITARTRATE 16 MG in IV DEXTROSE 5% 500 ML IV PRN ×2 (09:01→22:56)
[2019-02-22] MEDS: Z GUARD REMEDY PASTE 57 GM TUBE TOP SCH ×2 (09:03→20:17)
[2019-02-22] MEDS: HYDROCORTISONE SOD SUCCINATE 100 MG/2 ML VIAL IV SCH ×2 (09:03→20:16)
[2019-02-22] MEDS: ASPIRIN 81 MG TAB.CHEW NG SCH (09:04)
[2019-02-22 09:15] LABS: ABG HCO3 18.9 mmol/L; ABG PCO2 28.5 mmHg (35.0-45.0); ABG PO2 111.1 mmHg (75.0-100.0); ABG SITE LEFT BRACHIAL; ABG TOTAL HEMOGLOBIN 12.2 G/dL (12.0-16.0); COHb 1.3 % (0.5-1.5); MetHb 0.3 % (0.0-1.5); O2Hb 96.5 % (94.0-97.0); VENT MODE VENT - A/C; VT, ABG 600 mL
--- NOTE | 2019-02-22 10:00 | NUR ---
Patient repositioned to comfort, and family member son at bedside and updated. Anton Pozo RN
[2019-02-22] MEDS: NEPRO 1000 ML GT PRN (10:26)
--- NOTE | 2019-02-22 10:28 | NUR ---
Clinical Pharmacy Note: Vancomycin Pharmacy to Dose Subjective: To continue vanco in this 73 y/o dialysis female for Severe sepsis with shock, HCAP ?aspiration Acute resp failure UTI per ua, BLE acute on chronic cellulitis (per ID note) Objective: weight 112 kg height 160cm BMI 43.9 BUN 56 Scr 3.3 (on HD) wbc 18.7 temp 97.8 Vanco random level: 8.9 (on 02/20 with am labs) Vanco pre-HD level: 18 (on 02/21 with am labs) Assessment/Plan As per brand strategy manager, no HD has been scheduled for today, thus, no vanco dose shall be due today. Will continue to dose as per pre-HD level (next level not yet ordered). Will follow up.
--- NOTE | 2019-02-22 11:10 | NUR ---
DECREASED RR TO 12, PER MD ORDER. NO SOB NOTED. PT TOLERATING WELL
--- NOTE | 2019-02-22 12:00 | NUR ---
Patient BS 316, and Regular insulin 8 units given sc per sliding scale per do. Anton Pozo RN
[2019-02-22] MEDS: AMIODARONE HCL IV 900 MG in IV DEXTROSE 5% 482 ML IV PRN (12:06)
--- NOTE | 2019-02-22 14:00 | NUR ---
Daughter and son at bedside visiting with patient, updated on present condition, and given privacy to visit. Anton Pozo RN
--- NOTE | 2019-02-22 16:00 | NUR ---
Patient incont large amount of stool, bathed and partial linen changed. Anton Pozo RN
--- NOTE | 2019-02-22 17:25 | NUR ---
initiated sedation vacation for patient. Propofol drip has been held.
--- NOTE | 2019-02-22 18:00 | NUR ---
Patient BS 319, and patient received regular insulin 8 units sc per sliding scale per do. Anton Pozo RN
[2019-02-22] MEDS ORDERED: CLOPIDOGREL 75 MG TABLET PO ONE (18:15)
--- NOTE | 2019-02-22 18:50 | NUR ---
Daughter stays at bedside a good part of the afternoon and speaks to several MD's today, and updated on present condition, and NCP. Anton Pozo RN
--- NOTE | 2019-02-22 19:00 | NUR ---
received patient in bed. Patient continues to be on Levophed and propofol drips. Right femoral central line is intact and patent. Right AC IV 20 gauge no longer good access, IV removed. Rios catheter still intact and patent with minimal output. patient tolerating vent settings.
[2019-02-22] MEDS ORDERED: DOSING PER PHARMACY-AMIKACIN IV XX PRN (19:30)
--- NOTE | 2019-02-22 20:11 | NUR ---
CLINICAL PHARMACY NOTE:AMIKACIN DOSING Request for amikacin dosing on 73 y/o female 160.02cm 115,67kg for documented infection Temp 99.0f BUN 56 Scr 3.3 (on dialysis) WBC 18.7 Give Amikacin 860mg=7.5mg/kg x 1 dose. Will check level after dialysis. Will continue to monitor.
[2019-02-22] MEDS: ATORVASTATIN 40 MG TABLET NG SCH (20:15)
[2019-02-22] MEDS: FAMOTIDINE 20 MG TABLET GT SCH (20:15)
[2019-02-22] MEDS: AMIODARONE HCL 200 MG TABLET NG SCH (20:15)
[2019-02-22] MEDS: MICAFUNGIN SODIUM 100 MG in IV NORMAL SALINE 100 ML IV SCH (20:17)
[2019-02-22] MEDS ORDERED: AMIKACIN IV ONE (21:00)
[2019-02-22] MEDS ORDERED: DEXTROSE 5% IV ONE (21:00)
--- NOTE | 2019-02-22 21:00 | NUR ---
patient eyes opening and responsive during sedation vacation. patient able to move upper extremities and shrug shoulders. Patient able to open eyes to verbal stimuli. Place patient back on propofol drip with decreased rate from 18mcg to 10mcg. Will continue to monitor.
--- NOTE | 2019-02-22 21:57 | NUR ---
Turned and cleaned the patient. Patient has loose/watery bowel movement, no form stool noted. Inserted flexi seal. Sent second sample of c.diff to laboratory.
--- NOTE | 2019-02-22 22:36 | NUR ---
PT ORALLY INTUBATED WITH A 7.5 ETT, APPROXIMATELY 24CM AT THE LIP. FORTE VENT SETTINGS ARE AC 12, VT 600, PEEP +5, FIO2 50%. PT TOLERATING WELL. WILL TITRATE FIO2 NEEDED. NO CHANGES MADE AT THIS TIME. VENT ALARMS CHECKED, ARE ON AND AUDIBLE. VENT ALARMS CHECKED ARE ON AND AUDIBLE. SUCTIONED SMALL AMOUNT OF THICK, WHITE/YELLOWISH SECRETIONS. HME CHANGED. ORAL CARE DONE. WILL CONTINUE TO MONITOR THROUGHOUT SHIFT. VENT PLUGGED INTO RED EMERGENCY OUTLET. AMBU BAG AT BEDSIDE.
[2019-02-23] VITALS (66 sets, daily range): BP systolic 87–134; BP diastolic 45–91
[2019-02-23] MEDS: PIPERACILLIN/TAZOBACTAM/D5W 2.25 G in PREMIXED 1 EACH IV SCH ×3 (02:05→12:16)
[2019-02-23] MEDS: PROPOFOL 100 ML IV PRN (04:12)
[2019-02-23 05:15] LABS: BASOPHILS # (AUTO) 0.1 K/uL (0.0-8.0); BASOPHILS % (AUTO) 0.4 % (0.0-2.0); HEMATOCRIT 39.1 % (31.2-41.9); HEMOGLOBIN 11.7 g/dL (10.9-14.3); LYMPHOCYTES # (AUTO) 1.4 K/uL (20.0-40.0); MEAN CORPUSCULAR HEMOGLOBIN 22.4 uug (24.7-32.8); MEAN CORPUSCULAR HGB CONC 30 g/dL (32.3-35.6); MEAN CORPUSCULAR VOLUME 75.2 fL (75.5-95.3); MONOCYTES # (AUTO) 1.2 K/uL (2.0-10.0); MONOCYTES % (AUTO) 7.7 % (0.0-11.0); NEUTROPHILS % (AUTO) 82.9 % (38.5-71.5); PLATELET COUNT (AUTO) 218 K/uL (179-408); WHITE BLOOD COUNT (AUTO) 15.7 K/uL (3.8-11.8)
[2019-02-23 05:30] LABS: ALANINE AMINOTRANSFERASE 16 U/L (14-59); ALKALINE PHOSPHATASE 142 U/L (50-136); ASPARTATE AMINOTRANSFERASE 17 U/L (15-37); BILIRUBIN,TOTAL 0.7 mg/dL (0.2-1.0); CARBON DIOXIDE 22 mmol/L (21-32); CHLORIDE 95 mmol/L (98-107); CREATININE 3.6 mg/dL (0.6-1.3); MAGNESIUM 2.1 mg/dL (1.8-2.4); PHOSPHOROUS 5.7 mg/dL (2.5-4.9); POTASSIUM 4.2 mmol/L (3.5-5.1); TOTAL PROTEIN, SERUM 4.9 g/dL (6.4-8.2); UREA NITROGEN, BLOOD 66 mg/dL (7-18)
[2019-02-23 05:44] LABS: GLUCOSE 328 mg/dL (74-106)
[2019-02-23 05:55] LABS: *OCCULT BLOOD STOOL POSITIVE (NEGATIVE)
[2019-02-23] MEDS: FLUDROCORTISONE ACETATE 0.1 MG TABLET NG SCH ×3 (05:59→18:38)
[2019-02-23] MEDS: BLOOD SUGAR DIAGNOSTIC 1 EACH STRIP VI SCH ×3 (05:59→19:40)
[2019-02-23] MEDS: INSULIN REGULAR, HUMAN 300 UNIT/3 ML VIAL SQ PRN ×3 (06:04→19:41)
--- NOTE | 2019-02-23 06:21 | NUR ---
end of shift report. patient continues to be on Levophed drip and titrated according per MD. Patient also continues to be on propofol drip and titrated according. Patient tolerating vent settings and gastric feeding of nepro 1.8. Will endorse plan of care to day shift nurse,
--- NOTE | 2019-02-23 07:08 | NUR ---
RECEIVED PT ON VENT WITH SETTINGS OF- AC12, VT600, +5, 35% FIO2. NO SOB/RESP DISTRESS NOTED. VENT PLUGGED INTO RED OUTLET. AMBUBAG AT BEDSIDE. B/S BILATERALLY RHONCHI. PT HAS ETT 7.5, SECURED WITH ANCHOR FAST AT APPROX. 24CM. VENT ALARMS ON AND AUDIBLE. PT STABLE AT THIS TIME. WILL CONTINUE TO MONITOR PT.
--- NOTE | 2019-02-23 07:15 | NUR ---
OFF DIPRIVAN DRIP AND STARTED CPAP WEANING BY RT ORDERED. PT TOLERATED FOR 1HR WITHOUT ANY DISTRESS.
--- NOTE | 2019-02-23 08:30 | NUR ---
SEEN AND EXAMINED BY DR ROSALES WITH NEW ORDERS.
[2019-02-23 09:02] LABS: ABG BASE EXCESS -5.7 mmol/L; ABG HCO3 20.2 mmol/L; ABG PCO2 40.7 mmHg (35.0-45.0); ABG PH 7.313 (7.350-7.450); ABG PO2 72.3 mmHg (75.0-100.0); ABG SITE LEFT BRACHIAL; ABG TOTAL HEMOGLOBIN 12.7 G/dL (12.0-16.0); COHb 1.8 % (0.5-1.5); CPAP,BG 8 cmH20; MetHb 0.1 % (0.0-1.5); VENT MODE CPAP
[2019-02-23] MEDS: AMIODARONE HCL 200 MG TABLET NG SCH ×2 (09:35→21:09)
[2019-02-23] MEDS: ASPIRIN 81 MG TAB.CHEW NG SCH (09:35)
[2019-02-23] MEDS: HYDROCORTISONE SOD SUCCINATE 100 MG/2 ML VIAL IV SCH ×2 (09:35→21:07)
[2019-02-23] MEDS: CLOPIDOGREL 75 MG TABLET NG SCH (09:35)
[2019-02-23] MEDS: PROTEIN SUPPLEMENT (PROSTAT) 30 ML LIQUID NG SCH ×3 (09:36→18:37)
[2019-02-23] MEDS: SODIUM HYPOCHLORITE 0.25% 480 ML BOTTLE TOP SCH (09:37)
[2019-02-23] MEDS: Z GUARD REMEDY PASTE 57 GM TUBE TOP SCH ×2 (09:37→21:11)
--- NOTE | 2019-02-23 10:00 | NUR ---
SEEN AND EXAMINED BY DR MORENO WITH NEW ORDERS. PT EXTUBATED ORDERED AND PLACED ON O2 MASK AT 6L, TOLERATAED WELL. SATURATING 98%.
--- NOTE | 2019-02-23 10:10 | NUR ---
Clinical Pharmacy Note: Vancomycin & Amikacin Pharmacy to Dose Subjective: To continue vanco & Amikacin in this 73 y/o dialysis female for Severe sepsis with shock, HCAP ?aspiration Acute resp failure UTI per ua, BLE acute on chronic cellulitis (per ID note) Objective: weight 112 kg height 160cm BMI 43.9 BUN 66 Scr 3.6 (on HD) wbc 15.7 temp 98.2 Vanco random level: 8.9 (on 02/20 with am labs) Vanco pre-HD level: 18 (on 02/21 with am labs) Vanco pre-HD level: 14.4 (on 02/23 with am labs) Amikacin pre-HD level: pending (on 02/23 with am labs) Assessment/Plan As per paunch trimmer, HD has been scheduled for today. Since vanco pre-HD level is below 15 mcg/ml, will give vanco 1gm IVPB x1 today post HD. Will continue to dose as per pre-HD level (next level not yet ordered). Will follow up. Will dose Amikacin as per pre-HD level (pending results from lab). Pharmacy shall review the level & re-dose if needed. Will continue to dose as per pre-HD Amikacin level. Will follow Addendum: 02/23/19 at 1847 by ELIZABETH POE AMIKACIN LEVEL 11.6 NO ADDITIONAL DOSE TODAY
--- NOTE | 2019-02-23 10:10 | NUR ---
PT WAS EXTUBATED AT 1010. NO SOB/RESP DISTRESS NOTED. PLACED PT ON SIMPLE MASK AT 5LPM. AMBUBAG AT BEDSIDE. PT AWAKE. SPO2 99%, HR 92, RR 24. WILL CONTINUE TO MONITOR PT.
[2019-02-23] MEDS: NEPRO 1000 ML GT PRN (12:15)
--- NOTE | 2019-02-23 14:15 | NUR ---
US GUIDED RIGHT THORACENTHESIS DONE AT THE BEDSIDE BY DR SMITH AND OBTAINED ABOUT 1200ML LIGHT BROWNISH FLUIDS. PT TOLERATED WELL.
--- NOTE | 2019-02-23 16:30 | NUR ---
PM CARE RENDERED. PT TOLERATING TUBE FEEDING , NO RESIDUAL NOTED. RECTAL TUBE IN PLACE, VERY LITTLE OUTPUT.
[2019-02-23] MEDS: NOREPINEPHRINE BITARTRATE 16 MG in IV DEXTROSE 5% 500 ML IV PRN (18:41)
--- NOTE | 2019-02-23 19:20 | NUR ---
NOTIFIED FRED SINGH HEALTH AND SAFETY COORDINATOR REGARDING CXR POST THORACENTHESIS. ORDERED FOR ANOTHER CXR TO FOLLOW UP .
[2019-02-23] MEDS: VANCOMYCIN FOR PO/GT/NG USE PO SCH (20:46)
[2019-02-23] MEDS: MICAFUNGIN SODIUM 100 MG in IV NORMAL SALINE 100 ML IV SCH (20:47)
[2019-02-23] MEDS: FAMOTIDINE 20 MG TABLET GT SCH (21:08)
[2019-02-23] MEDS: ATORVASTATIN 40 MG TABLET NG SCH (21:08)
--- NOTE | 2019-02-23 21:50 | NUR ---
REPORTED REPEAT CXR RESULTS TO LOULOU SINGH, NO NEW ORDERS GIVEN.
[2019-02-23] MEDS ORDERED: VANCOMYCIN IV 1 G in PREMIXED 0 EACH IV ONE (22:00)
[2019-02-23] MEDS: METRONIDAZOLE 500 MG TABLET PO SCH (22:41)
[2019-02-24] VITALS (84 sets, daily range): BP systolic 84–124; BP diastolic 44–74
[2019-02-24] MEDS: FLUDROCORTISONE ACETATE 0.1 MG TABLET NG SCH ×5 (00:15→23:34)
[2019-02-24] MEDS: VANCOMYCIN FOR PO/GT/NG USE PO SCH ×5 (00:16→23:34)
[2019-02-24] MEDS: BLOOD SUGAR DIAGNOSTIC 1 EACH STRIP VI SCH ×5 (00:25→23:41)
[2019-02-24] MEDS: INSULIN REGULAR, HUMAN 300 UNIT/3 ML VIAL SQ PRN ×5 (00:28→23:43)
[2019-02-24] MEDS: IV NORMAL SALINE 250 ML IV PRN (04:00)
[2019-02-24 05:18] LABS: BASOPHILS % (AUTO) 0.1 % (0.0-2.0); HEMATOCRIT 39.4 % (31.2-41.9); HEMOGLOBIN 11.8 g/dL (10.9-14.3); LYMPHOCYTES # (AUTO) 1.1 K/uL (20.0-40.0); LYMPHOCYTES % (AUTO) 5.9 % (20.5-51.5); MEAN CORPUSCULAR HEMOGLOBIN 22.5 uug (24.7-32.8); MEAN CORPUSCULAR HGB CONC 30 g/dL (32.3-35.6); MEAN CORPUSCULAR VOLUME 75.2 fL (75.5-95.3); MONOCYTES # (AUTO) 1.5 K/uL (2.0-10.0); MONOCYTES % (AUTO) 7.7 % (0.0-11.0); NEUTROPHILS # (AUTO) 16.5 K/uL (1.8-8.9); NEUTROPHILS % (AUTO) 86.3 % (38.5-71.5); PLATELET COUNT (AUTO) 205 K/uL (179-408); RED BLOOD CELL COUNT(AUTO) 5.24 MIL/uL (3.63-4.92); WHITE BLOOD COUNT (AUTO) 19.2 K/uL (3.8-11.8)
[2019-02-24 05:30] LABS: CARBON DIOXIDE 24 mmol/L (21-32); CHLORIDE 97 mmol/L (98-107); CREATININE 3.3 mg/dL (0.6-1.3); GLUCOSE 237 mg/dL (74-106); MAGNESIUM 2.2 mg/dL (1.8-2.4); POTASSIUM 4.1 mmol/L (3.5-5.1); UREA NITROGEN, BLOOD 61 mg/dL (7-18)
[2019-02-24] MEDS: METRONIDAZOLE 500 MG TABLET PO SCH ×3 (06:09→22:10)
--- NOTE | 2019-02-24 07:30 | NUR ---
Nursing Note: Pt on simple mask at 6lpm. No apparent distress. Pupils equal round and reactive to light. Turned and repositioned
[2019-02-24] MEDS: PROTEIN SUPPLEMENT (PROSTAT) 30 ML LIQUID NG SCH ×3 (08:22→17:11)
[2019-02-24] MEDS: ASPIRIN 81 MG TAB.CHEW NG SCH (09:08)
[2019-02-24] MEDS: AMIODARONE HCL 200 MG TABLET NG SCH ×2 (09:08→20:40)
[2019-02-24] MEDS: HYDROCORTISONE SOD SUCCINATE 100 MG/2 ML VIAL IV SCH ×2 (09:08→20:39)
[2019-02-24] MEDS: CLOPIDOGREL 75 MG TABLET NG SCH (09:09)
[2019-02-24] MEDS: SODIUM HYPOCHLORITE 0.25% 480 ML BOTTLE TOP SCH (09:19)
[2019-02-24] MEDS: Z GUARD REMEDY PASTE 57 GM TUBE TOP SCH ×2 (09:19→20:40)
[2019-02-24 09:30] LABS: ABG HCO3 21.6 mmol/L; ABG PCO2 46.2 mmHg (35.0-45.0); ABG PH 7.288 (7.350-7.450); ABG PO2 101.5 mmHg (75.0-100.0); ABG SITE RIGHT RADIAL; ABG TOTAL HEMOGLOBIN 12.8 G/dL (12.0-16.0); MetHb 0.1 % (0.0-1.5); O2Hb 94.8 % (94.0-97.0)
--- NOTE | 2019-02-24 09:30 | NUR ---
Nursing Note: Pt turned and repositioned. Family at bedside. Pt noted with generalized weeping edema. Pt able to follow commands. REYNA.
--- NOTE | 2019-02-24 10:00 | NUR ---
Nursing Note: Pt seen and evaluated by Dr. Sanchez. Ok to titrate O2. PERRLA. Turned and repositioned
--- NOTE | 2019-02-24 11:36 | NUR ---
Clinical Pharmacy Note: Vancomycin & Amikacin Pharmacy to Dose Subjective: To continue vanco & Amikacin in this 73 y/o dialysis female for Severe sepsis with shock, HCAP ?aspiration Acute resp failure UTI per ua, BLE acute on chronic cellulitis (per ID note) Objective: weight 112 kg height 160cm BMI 43.9 BUN 66 Scr 3.6 (on HD) wbc 15.7 temp 98.2 Vanco random level: 8.9 (on 02/20 with am labs) Vanco pre-HD level: 18 (on 02/21 with am labs) Vanco pre-HD level: 14.4 (on 02/23 with am labs) Amikacin pre-HD level: 11.6 (on 02/23 with am labs) Assessment/Plan As per scleroscope tester, no HD has been scheduled for today. No vanco or amikacin dose shall be due today. Will continue to dose as per pre-HD vanco & amikacin levels (next level not yet ordered). Will follow up.
--- NOTE | 2019-02-24 13:00 | NUR ---
Nursing Note: Full bed bath done. Pt responsive to verbal stimuli. Family at bedside. Wound care provided by sludge filtration operator to left heel.
--- NOTE | 2019-02-24 17:00 | NUR ---
Nursing Note: PA discussed wound debridement with family and consent signed. Sacral wound debridement done to sacrum. Turned and repositioned.
[2019-02-24] MEDS: NOREPINEPHRINE BITARTRATE 16 MG in IV DEXTROSE 5% 500 ML IV PRN (17:11)
[2019-02-24] MEDS: MICAFUNGIN SODIUM 100 MG in IV NORMAL SALINE 100 ML IV SCH (19:55)
--- NOTE | 2019-02-24 20:00 | NUR ---
RECEIVED PT. OPENS HER EYES TO VERBAL STIMULI, PT REMAINS LETHARGIC. ON O2 @ 6L SIMPLE MASK W/ O2 SAT OF 98%. SUCTIONED ORALLY W/ SMALL AMT. OF THIN WHITISH MUCOUS. NGT ON R NARE, CHECKED PLACEMENT & CHECKED RESIDUAL 5CC NOTED. ON TUBE FDG OF NEPRO @ 35CC/HR. ON LEVOPHED DRIP @ 8MCQ/MIN VIA R FEM TLC. NS @ 10CC/HR FOR IVPB MEDS. REPOSITIONED W/ HOB ELEVATED.
[2019-02-24] MEDS: ATORVASTATIN 40 MG TABLET NG SCH (20:39)
[2019-02-24] MEDS: FAMOTIDINE 20 MG TABLET GT SCH (20:40)
[2019-02-24] MEDS ORDERED: SUCCINYLCHOLINE CHLORIDE 200 MG/10 ML VIAL IV ONE (21:00)
[2019-02-24] MEDS ORDERED: ETOMIDATE 20 MG/10 ML VIAL IV ONE (21:00)
[2019-02-25] VITALS (48 sets, daily range): BP systolic 57–131; BP diastolic 29–83
--- NOTE | 2019-02-25 01:00 | NUR ---
Nursing Note: Pt on O2 via NC, Agonal breathing noted at 13 breathes per minute. BP 59/37 HR. 90 O2 sat 87 percent. No signs and symptoms of distress noted. Addendum: 02/25/19 at 1412 by FAUZIA LOUIE RN Incorrect time
--- NOTE | 2019-02-25 02:58 | NUR ---
AM CARE DONE. ORAL CARE DONE. REPOSITIONED ON HER SIDE W/ HOB ELEVATED.
[2019-02-25] MEDS: NEPRO 1000 ML GT PRN (03:38)
--- NOTE | 2019-02-25 03:45 | NUR ---
PT. IS APNIC RESP-6-8/MIN. 0354 CALLED FOR CODE BLUE, REINTUBATED PT W/ SETTINGS OF AC-16, TV-550, FIO2-100%
--- NOTE | 2019-02-25 04:15 | NUR ---
Code blue called and pt subsequently intubated by ED MD WANG with a 7.0 ETT at approx. 22cm at the right side of the pt's mouth. Pt subsequently placed on Ray settings AC 16, VT 550 and FIO2-100%. BVM is at bedside. Pt to be monitored throughout the duration of the shift. Ray alarm parameters have been checked and remain audible.
[2019-02-25] MEDS: IV NORMAL SALINE 250 ML IV PRN (04:35)
--- NOTE | 2019-02-25 05:00 | NUR ---
called daughter re: reintubation of her mother.
[2019-02-25 05:19] LABS: BASOPHILS % (AUTO) 0.2 % (0.0-2.0); HEMATOCRIT 42.5 % (31.2-41.9); HEMOGLOBIN 12.5 g/dL (10.9-14.3); LYMPHOCYTES # (AUTO) 0.5 K/uL (20.0-40.0); LYMPHOCYTES % (AUTO) 2.2 % (20.5-51.5); MEAN CORPUSCULAR HEMOGLOBIN 22.9 uug (24.7-32.8); MEAN CORPUSCULAR HGB CONC 29 g/dL (32.3-35.6); MEAN CORPUSCULAR VOLUME 78.1 fL (75.5-95.3); MONOCYTES # (AUTO) 1.7 K/uL (2.0-10.0); MONOCYTES % (AUTO) 7.4 % (0.0-11.0); NEUTROPHILS % (AUTO) 90.2 % (38.5-71.5); PLATELET COUNT (AUTO) 323 K/uL (179-408); RED BLOOD CELL COUNT(AUTO) 5.44 MIL/uL (3.63-4.92); WHITE BLOOD COUNT (AUTO) 23.3 K/uL (3.8-11.8)
[2019-02-25 05:22] LABS: CARBON DIOXIDE 26 mmol/L (21-32); CHLORIDE 98 mmol/L (98-107); CREATININE 3.7 mg/dL (0.6-1.3); GLUCOSE 257 mg/dL (74-106); POTASSIUM 4.7 mmol/L (3.5-5.1); UREA NITROGEN, BLOOD 73 mg/dL (7-18)
[2019-02-25 05:40] LABS: LYMPHOCYTES % (MANUAL) 3 % (20-40); MONOCYTES % (MANUAL) 8 % (2-10); NEUTROPHILS % (MANUAL) 89 % (42-75)
[2019-02-25] MEDS: BLOOD SUGAR DIAGNOSTIC 1 EACH STRIP VI SCH (05:59)
[2019-02-25] MEDS: VANCOMYCIN FOR PO/GT/NG USE PO SCH (06:03)
[2019-02-25] MEDS: METRONIDAZOLE 500 MG TABLET PO SCH (06:03)
[2019-02-25] MEDS: INSULIN REGULAR, HUMAN 300 UNIT/3 ML VIAL SQ PRN (06:03)
[2019-02-25] MEDS: FLUDROCORTISONE ACETATE 0.1 MG TABLET NG SCH (06:03)
[2019-02-25 06:14] LABS: ABG BASE EXCESS -7.2 mmol/L; ABG HCO3 19.3 mmol/L; ABG PCO2 42.4 mmHg (35.0-45.0); ABG PH 7.275 (7.350-7.450); ABG PO2 156.5 mmHg (75.0-100.0); ABG SITE RIGHT BRACHIAL; ABG TOTAL HEMOGLOBIN 13.4 G/dL (12.0-16.0); COHb 1.8 % (0.5-1.5); O2Hb 97.1 % (94.0-97.0); VENT MODE VENT - A/C; VT, ABG 550 mL
--- NOTE | 2019-02-25 06:40 | NUR ---
called dr kamara for abg results w/ orders.
[2019-02-25] MEDS: PROPOFOL 100 ML IV PRN (07:17)
--- NOTE | 2019-02-25 07:30 | NUR ---
Nursing Note: Pt intubated previous shift. ETT 7/22cm AC 20 VT 550 Fi02 70% Peep 5. Pt seen by Dr. Sanchez. New order to titrate O2 down to 50%.
[2019-02-25] MEDS: PROTEIN SUPPLEMENT (PROSTAT) 30 ML LIQUID NG SCH (08:00)
[2019-02-25 08:16] LABS: ABG HCO3 21.3 mmol/L; ABG PCO2 39.8 mmHg (35.0-45.0); ABG PH 7.347 (7.350-7.450); ABG PO2 170.2 mmHg (75.0-100.0); ABG SITE RIGHT RADIAL; ABG TOTAL HEMOGLOBIN 13.5 G/dL (12.0-16.0); COHb 2.1 % (0.5-1.5); O2Hb 97.1 % (94.0-97.0); VENT MODE VENT - A/C; VT, ABG 550 mL
--- NOTE | 2019-02-25 08:30 | NUR ---
Nursing Note: Dialysis initiated. Pt family at bedside. Per MD hold medications until after dialysis. Pt turned and repositioned.
[2019-02-25] MEDS: Z GUARD REMEDY PASTE 57 GM TUBE TOP SCH (09:00)
[2019-02-25] MEDS: HYDROCORTISONE SOD SUCCINATE 100 MG/2 ML VIAL IV SCH (09:00)
[2019-02-25] MEDS ORDERED: ALBUMIN HUMAN 25% 100 ML IV ONE (09:00)
[2019-02-25] MEDS: SODIUM HYPOCHLORITE 0.25% 480 ML BOTTLE TOP SCH (09:00)
[2019-02-25] MEDS: AMIODARONE HCL 200 MG TABLET NG SCH (09:00)
[2019-02-25] MEDS: CLOPIDOGREL 75 MG TABLET NG SCH (09:00)
[2019-02-25] MEDS: ASPIRIN 81 MG TAB.CHEW NG SCH (09:00)
--- NOTE | 2019-02-25 09:00 | NUR ---
Nursing Note: Albumin 2 bottles administered by Dialysis nurse. Dialysis stopped for blood pressure 85/49.
--- NOTE | 2019-02-25 09:00 | NUR ---
Nursing Note: Pt seen by Dr. Evans. Comfort measures only discussed with Family
--- NOTE | 2019-02-25 10:27 | NUR ---
Nursing Note: Family decision to do comfort measure only discussed with Dr. Evans. New order for comfort measures only. New order for lorazepam 2mg q2h prn.
[2019-02-25] MEDS: NOREPINEPHRINE BITARTRATE 16 MG in IV DEXTROSE 5% 500 ML IV PRN (10:38)
[2019-02-25] MEDS ORDERED: ATROPINE SULFATE 1% OPHT DROP 2 ML SL PRN (10:45)
[2019-02-25] MEDS ORDERED: MORPHINE SULFATE PF IV DRIP 250 MG in IV DEXTROSE 5% 240 ML IV PRN ×2 (10:45→11:15)
--- NOTE | 2019-02-25 10:48 | NUR ---
Nursing Note: Contacted [facility] spoke to Meagan. Case discussed.
--- NOTE | 2019-02-25 11:00 | NUR ---
Nursing Note: Contacted pharmacy. Awaiting Morphine drip.
[2019-02-25] MEDS ORDERED: DC PROPOFOL ONCE EXTUBATED XX PRN (11:15)
--- NOTE | 2019-02-25 11:36 | NUR ---
Nursing Note: Family at bedside with patient. Pt kept comfortable.
[2019-02-25] MEDS: LORAZEPAM 2 MG/1 ML VIAL IV PRN ×2 (12:11→15:14)
--- NOTE | 2019-02-25 12:21 | NUR ---
Nursing Note: Morphine drip initiated. Ativan administered.
--- NOTE | 2019-02-25 12:25 | NUR ---
PT WAS TERMINALLY EXTUBATED PER MD ORDERS. RN AT BEDSIDE. PLACED ON NASAL CANNULA FOR COMFORT.
--- NOTE | 2019-02-25 12:30 | NUR ---
Nursing Note: Terminally extubated by RT
--- NOTE | 2019-02-25 14:13 | NUR ---
Nursing Note: Pt on O2 via NC, Agonal breathing noted at 13 breathes per minute. BP 66/38 HR. 84 O2 sat 88 percent. No signs and symptoms of distress noted.
--- NOTE | 2019-02-25 14:13 | NUR ---
Nursing Note: Pt on O2 via NC, Agonal breathing noted at 13 breathes per minute. BP 59/37 HR. 90 O2 sat 87 percent. No signs and symptoms of distress noted.
--- NOTE | 2019-02-25 18:28 | NUR ---
Nursing Note: Patient apneic for 1 minute. Pupils fixed and dilaterd. No audible heart sounds. No breath sounds for once minute. No palpable pulse for one minute. No corneal reflexes Pt pronounced at 1828 physician, supervisor floor assembly and [facility] notified.
--- NOTE | 2019-02-25 19:45 | NUR ---
post mortem care done.
--- NOTE | 2019-02-25 20:35 | NUR ---
pt body transfered to [facility].
== END 2019-02-25 20:35 | disposition expired | DRG 853 ==
LOC: ER 17:34 → CCU 19:36
PROVIDERS: ADMIT Internal Medicine; ATTEND Internal Medicine
PROC: 5A1945Z Respiratory Ventilation, 24-96 Consecutive Hours (ICD-10-PCS; principal; 2019-02-19)
PROC: 0BH17EZ Insertion of Endotracheal Airway into Trachea, Via Natural or Artificial Opening (ICD-10-PCS; 2019-02-19)
PROC: 02H633Z Insertion of Infusion Device into Right Atrium, Percutaneous Approach (ICD-10-PCS; 2019-02-19)
PROC: 5A09357 Assistance with Respiratory Ventilation, Less than 24 Consecutive Hours, Continuous Positive Airway Pressure (ICD-10-PCS; 2019-02-19)
PROC: 5A1D70Z Performance of Urinary Filtration, Intermittent, Less than 6 Hours Per Day (ICD-10-PCS; 2019-02-20)
PROC: 0JBR0ZZ Excision of Left Foot Subcutaneous Tissue and Fascia, Open Approach (ICD-10-PCS; 2019-02-22)
PROC: 0W993ZX Drainage of Right Pleural Cavity, Percutaneous Approach, Diagnostic (ICD-10-PCS; 2019-02-23)
PROC: 0JD73ZZ Extraction of Back Subcutaneous Tissue and Fascia, Percutaneous Approach (ICD-10-PCS; 2019-02-24)
PROC: 5A12012 Performance of Cardiac Output, Single, Manual (ICD-10-PCS; 2019-02-25)
PROC: 0BH17EZ Insertion of Endotracheal Airway into Trachea, Via Natural or Artificial Opening (ICD-10-PCS; 2019-02-25)
PROC: 5A1935Z Respiratory Ventilation, Less than 24 Consecutive Hours (ICD-10-PCS; 2019-02-25)
DX: A41.9 Sepsis, unspecified organism (principal); J69.0 Pneumonitis due to inhalation of food and vomit; J96.21 Acute and chronic respiratory failure with hypoxia; R65.21 Severe sepsis with septic shock; J15.6 Pneumonia due to other Gram-negative bacteria; J96.22 Acute and chronic respiratory failure with hypercapnia; I50.43 Acute on chronic combined systolic (congestive) and diastolic (congestive) heart failure; N18.6 End stage renal disease; E43 Unspecified severe protein-calorie malnutrition; I21.4 Non-ST elevation (NSTEMI) myocardial infarction; J91.8 Pleural effusion in other conditions classified elsewhere; L03.116 Cellulitis of left lower limb; L03.115 Cellulitis of right lower limb; I13.2 Hypertensive heart and chronic kidney disease with heart failure and with stage 5 chronic kidney disease, or end stage renal disease; Z68.41 Body mass index [BMI] 40.0-44.9, adult; B37.49 Other urogenital candidiasis; A04.72 Enterocolitis due to Clostridium difficile, not specified as recurrent; D68.59 Other primary thrombophilia; E87.4 Mixed disorder of acid-base balance; I47.2 Ventricular tachycardia; Z51.5 Encounter for palliative care; I11.0 Hypertensive heart disease with heart failure; E11.22 Type 2 diabetes mellitus with diabetic chronic kidney disease; E11.65 Type 2 diabetes mellitus with hyperglycemia; I46.9 Cardiac arrest, cause unspecified; Z99.2 Dependence on renal dialysis; I87.8 Other specified disorders of veins; Z79.01 Long term (current) use of anticoagulants; Z82.0 Family history of epilepsy and other diseases of the nervous system; Z83.3 Family history of diabetes mellitus; Z87.01 Personal history of pneumonia (recurrent); Z85.828 Personal history of other malignant neoplasm of skin; Z90.710 Acquired absence of both cervix and uterus; Z99.81 Dependence on supplemental oxygen; E66.01 Morbid (severe) obesity due to excess calories; I25.10 Atherosclerotic heart disease of native coronary artery without angina pectoris; I08.1 Rheumatic disorders of both mitral and tricuspid valves; E88.81 Metabolic syndrome and other insulin resistance; G47.33 Obstructive sleep apnea (adult) (pediatric); I27.20 Pulmonary hypertension, unspecified; R60.1 Generalized edema; E78.5 Hyperlipidemia, unspecified; I48.2 Chronic atrial fibrillation; I70.0 Atherosclerosis of aorta; R13.10 Dysphagia, unspecified; M19.90 Unspecified osteoarthritis, unspecified site; G31.84 Mild cognitive impairment of uncertain or unknown etiology; Z74.09 Other reduced mobility; Z79.82 Long term (current) use of aspirin; D64.9 Anemia, unspecified
CPT/HCPCS: 32555; 36415; 36556; 36600; 51702; 70030-TC; 71045; 74018; 76604; 82378; 82533; 83550; 83605; 83615; 83690; 83735; 83986; 84100; 84155; 84443; 85025; 85610; 85730; 86706; 87040; 87070; 87086; 87205; 87340; 90937; 93005; 93307; 94002; 94003; 94640; 94660; A4217; A4663; G0378; J0278; J0282; J0330; J1170; J1644; J1720; J1815; J2060; J2248; J2274; J2405; J2543; J2916; J3370; J3490; J7040; J7042; J7050; J7060; P9047